=== PATIENT | female | born 1970 | race Caucasian/White ===

== ENCOUNTER 2017-03-03 06:59 | Day surgery (SDC) | payer OTHER ==
[~2017-03-03] VITALS: Ht 162.6 cm; Wt 70.8 kg
[2017-03-03 07:24] VITALS: BP 139/95
[2017-03-03 15:10] VITALS: BP 109/71
== END 2017-03-03 14:55 | disposition home or self-care (01) ==
LOC: DS 06:59 → OR 10:00 → DS 14:55
PROVIDERS: Surgery
PROC: 0WQF0ZZ Repair Abdominal Wall, Open Approach (ICD-10-PCS; 2017-03-03)
PROC: 0FT44ZZ Resection of Gallbladder, Percutaneous Endoscopic Approach (ICD-10-PCS; principal; 2017-03-03 09:00)
DX: K80.10 Calculus of gallbladder with chronic cholecystitis without obstruction (principal); K42.9 Umbilical hernia without obstruction or gangrene; I10 Essential (primary) hypertension; Z68.26 Body mass index [BMI] 26.0-26.9, adult
CPT/HCPCS: J0330; J0690; J1170; J2175; J2250; J2405; J2704; J2710; J3010; J3490; J7030; J7120